=== PATIENT | male | born 1960 | race Two or more races ===

== ENCOUNTER 2025-08-04 21:01 | Emergency (ER) | payer BC, SELFPAY ==
[2025-08-04 21:03] VITALS: BMI 31.3
[2025-08-04 21:07] VITALS: BP 147/91; PULSE 62; RESP 19; TEMP 36.4; O2SAT 97
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
[2025-08-04] MEDS: KETOROLAC INJ 60 MG/2 ML VIAL IM (22:04)
[2025-08-04 22:57] VITALS: RESP 18
--- NOTE | 2025-08-04 23:32 | EDNOTE_ITS ---
ED Extremity Problem RME/HPI General Chief complaint: Extremity Problem,Nontraumatic Stated complaint: LEFT HIP PAIN Time Seen by Provider: 08/04/25 21:52 Arrival date/time: 08/04/25 21:01 65M with history of L hip replacement presents to ED with 1 day of L hip pain w/o fall/trauma. Patient also denies fevers/chills. Limitations: no limitations Related Data Allergies Allergy/AdvReac Type Severity Reaction Status Date / Time No Known Allergies Allergy Verified 08/04/25 21:03 Review of Systems Musculoskeletal Musculoskeletal: Reports as per HPI and Reports arthralgias Past Medical History Social History SMOKING STATUS: Never smoker ED Exam General Limitations: Present no limitations General appearance: Present alert and in no apparent distress Head Head exam: Present atraumatic Neck Neck exam: Present normal inspection, full ROM and trachea midline Chest Chest inspection: Present normal inspection and symmetric chest wall rise Extremities Exam Extremities exam: Present normal inspection and full ROM Back Exam Back exam: Present normal inspection and full ROM Neurological Exam Neurological exam: Present alert, oriented X3 and CN II-XII intact Psychiatric Psychiatric exam: Present normal affect and normal mood Skin Skin exam: Present warm, dry, intact and normal color Course Quality Measures none Orders Category Date Time Status XR hip LT w pelvis 2-3V Stat Exams 08/04/25 21:38 Completed Ketorolac Inj [Toradol Inj] Med 08/04/25 21:53 Discontinued 60 mg IM X1 ONE Vital Signs Vital signs: Vital Signs Temperature 97.6 F 08/04/25 21:07 Pulse Rate 62 08/04/25 21:07 Respiratory Rate 19 08/04/25 21:07 Blood Pressure 147/91 H 08/04/25 21:07 Pulse Oximetry (%) 97 08/04/25 21:07 Oxygen Delivery Method Room Air 08/04/25 21:07 O2 at 97% on RA and WNLs Extremity Problem MDM Narrative MDM Narrative:: 65M with history of L hip replacement presents to ED with 1 day of L hip pain w/o fall/trauma. Patient also denies fevers/chills. Pain is worse with movement. Physical exam reveals L hip tenderness. ROM mostly intact. Patient is able to bear weight with help of cane. No gross leg swelling. Patient is afebrile, calm, and alert. XR reveals hardware in place. Possible chronic osteomyelitis, but that wouldn't explain his symptoms. Meds and counseling case manager given. Patient data External records reviewed:: None Clinical information provided by:: patient Social determinants that could affect healthcare access:: none Patient has the following chronic illnesses:: none How is presenting disease/condition affected by chronic disease/condition?: no chronic disease Evaluation data The following diagnostics were reviewed and interpreted by me:: radiology exam(s) Lab and/or radiology exams considered but not ordered:: ordered Interpretation Summary: above Medications / Prescriptions Medications or Prescriptions considered but not ordered:: ordered Medication administrations:: Medication Administration History Discontinued Medications Ketorolac Tromethamine (Ketorolac Inj 60 Mg/2 Ml Vial) 60 mg IM X1 ONE Stop: 08/04/25 21:54 Last Admin: 08/04/25 22:04 Dose: 60 mg Documented By: CVL above Consultations Consultation(s) initiated? (list below): No Diagnosis Extremity Problem Differential Diagnosis: herpes zoster, gout, cellulitis, superficial thrombophlebitis, deep venous thrombosis of upper extremity, lower extremity edema, deep vein thrombosis of lower extremity and other (hip pain) Most likely diagnosis given after review of the tests above:: hip pain Admission Indicated Admission indicated?: not indicated Admission Request Was there a request for admission?: No Disposition Plan Disposition Plan: Discharge Discharge Attestation Discharge Attestation: The patient and all family members were given an opportunity to ask questions and understood the discharge instructions. Discharge instructions specifically effects, indications for sooner follow up or return to the emergency department, and the expected course of current diagnosis. Patient condition: Stable Discharge Plan Plan Patient Disposition: HOME (Self Care) Discharge Disposition comment: Stable Prescriptions/Referrals Referrals: No Primary/Family,Physician [Primary Care Provider] - In 1 week Problem List Clinical Impression: Hip pain Patient/Caregiver Discharge Instructions Education Materials: ED Arthralgia Additional Instructions: Please follow-up with PCP within 24-48 hours and return immediately if symptoms worsen. NSAIDs like ibuprofen tend to work better for this type of pain. Follow-up with surgeon. Print Language: [place] Stand Alone Forms: Patient Portal Info Letter JONELLE/GAIL Supervising Physician JONELLE/GAIL Supervising Physician: Dr. Galdamez
== END 2025-08-04 22:58 | disposition home or self-care (01) ==
PROVIDERS: Emergency Provider Emergency Medicine
DX: M25.552 Pain in left hip (principal); Z96.642 Presence of left artificial hip joint
CPT/HCPCS: 73502; 96372; 99283; J1885